=== PATIENT | male | born 1975 | race Caucasian/White ===

== ENCOUNTER 2018-03-27 17:09 | Emergency (ER) | payer OTHER ==
[2018-03-27 17:15] VITALS: BP 132/88; PULSE 113; TEMP 98.6; BMI 40.7
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
[2018-03-27 18:32] LABS: BASO % 0.9 % (0-2.0); EOS % 0.8 % (0-4.5); HEMATOCRIT 47.4 % (35.4-49); HEMOGLOBIN 16.1 GM/dL (11.7-16.9); LYMPH % 26.8 % (8-40); MCH 29.5 pg (25.7-33.7); MCHC 33.9 g/dl (32.0-35.9); MEAN CELL VOLUME 87.1 fl (80-96); MEAN PLT VOLUME 8.1 fl (7.5-11.1); MONO % 7.1 % (3.8-10.2); NEUT % 64.4 % (42.8-82.8); PLATELET COUNT 338 K/MM3 (134-434); RBC 5.45 M/mm3 (4.00-5.60); RDW 14.8 % (11.9-15.9); WHITE BLOOD COUNT 10.6 K/mm3 (4.0-10.0)
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
[2018-03-27 18:56] LABS: ALBUMIN 4.5 g/dl (3.4-5.0); ALK PHOS 82 U/L (45-117); ANION GAP 8 (8-16); BILIRUBIN,TOTAL 0.3 mg/dL (0.2-1.0); BLOOD UREA NITROGEN 11 mg/dL (7-18); CALCIUM 9.4 mg/dL (8.5-10.1); CHLORIDE 109 mmol/L (98-107); CO2 25 mmol/L (21-32); CREATININE 1.1 mg/dL (0.7-1.3); GLUCOSE,RANDOM 109 mg/dL (74-106); SGPT/ALT 65 U/L (12-78); SODIUM 142 mmol/L (136-145)
[2018-03-27 18:58] LABS: SGOT/AST 42 U/L (15-37)
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
[2018-03-27] MEDS ORDERED: KETOROLAC TROMETHAMINE 30 MG/1 ML VIAL IVPUSH ONE (19:49)
[2018-03-27] MEDS ORDERED: KETOROLAC TROMETHAMINE 30 MG/1 ML VIAL ONE (20:24)
[2018-03-27] MEDS ORDERED: METHOCARBAMOL 500 MG TABLET PO ONE (20:25)
[2018-03-27] MEDS ORDERED: BACLOFEN 10 MG TABLET (FP) PO ONE (21:26)
[2018-03-27] MEDS ORDERED: BACLOFEN 10 MG TABLET (FP) ONE (21:38)
== END 2018-03-27 22:19 | disposition home or self-care (01) ==
LOC: JER 17:09
PROC: 3E0333Z Introduction of Anti-inflammatory into Peripheral Vein, Percutaneous Approach (ICD-10-PCS; principal; 2018-03-27)
DX: S09.8XXA Other specified injuries of head, initial encounter (principal); M25.512 Pain in left shoulder; M54.5 Low back pain; V43.52XA Car driver injured in collision with other type car in traffic accident, initial encounter; W22.11XA Striking against or struck by driver side automobile airbag, initial encounter; Y92.414 Local residential or business street as the place of occurrence of the external cause; Y93.89 Activity, other specified; Y99.8 Other external cause status
CPT/HCPCS: 36415; 70450-TC; 72100-TC-FY; 72125-TC; 80053; 85025; 99282-25; J0475

== ENCOUNTER 2018-04-08 04:41 | Emergency (ER) | payer OTHER ==
[2018-04-08 05:37] VITALS: BP 136/96; PULSE 93; TEMP 98.2; BMI 40.7
[2018-04-08] MEDS ORDERED: TETRACAINE 0.5% HCL 0.6ML DROPPER.BOTTLE OS ONE (05:38)
[2018-04-08] MEDS ORDERED: DEXAMETHASONE 0.1% OPHTHALMIC SOLN 5 ML BOTTLE OS ONE (05:41)
[2018-04-08] MEDS ORDERED: CIPROFLOXACIN 0.3% EYE DROPS 5 ML BOTTLE OS ONE (05:41)
[2018-04-08] MEDS ORDERED: FLUORESCEIN NA 1 EA STRIP OS ONE (05:42)
[2018-04-08] MEDS ORDERED: CIPROFLOXACIN HCL 0.3% OPHTH 2.5ML BOTTLE ONE ×2 (05:50→05:52)
[2018-04-08] MEDS ORDERED: TETRACAINE 0.5% OPHTH SOLN 2 ML BOTTLE ONE (05:50)
[2018-04-08] MEDS ORDERED: FLUORESCEIN NA 1 EA STRIP ONE (05:52)
--- NOTE | 2018-04-08 06:43 | PDOC ---
History of Present Illness - General Chief Complaint: Eye Problem Stated Complaint: EYE PAIN Time Seen by Provider: 04/08/18 05:30 History Source: Patient Exam Limitations: No Limitations - History of Present Illness Initial Comments: 04/08/18 06:34 Patient is a 42 year old male with h/o orthopedic surgery to the knee, appendectomy, hernia repair c/o left eye irritation and pain since yesterday. States he woke up to the eye having a stinging across the middle of the eye. States he had a problem with the eye in the past was dx with iritis and was prescribed some drops and some ointment which she used and it felt better. The eye was feeling good day but this morning the pain woke him up from sleep so decided to come to the ED. Pain is 8/10, feels like he got a cut across the eye and was assoc/w mild photophobia, with no visual deficit. No injury to the eye. Patient used cycloplegic drops prior to emergency room visit PMHX: as above PSOCHX: (+) cig 1PPD, neg etoh, neg drugs ALL: ASA GENERAL/CONSTITUTIONAL: [No fever or chills. No weakness. No weight change.] HEAD, EYES, EARS, NOSE AND THROAT: [No change in vision, (+) eye pain left. No ear pain or discharge. No sore throat.] CARDIOVASCULAR: [No chest pain or shortness of breath.] RESPIRATORY: [No cough, wheezing, or hemoptysis.] GASTROINTESTINAL: [No nausea, vomiting, diarrhea or constipation. No rectal bleeding.] GENITOURINARY: [No dysuria, frequency, or change in urination.] MUSCULOSKELETAL: [No joint or muscle swelling or pain. No neck or back pain.] SKIN AND BREASTS: [No rash or easy bruising.] NEUROLOGIC: [No headache, vertigo, loss of consciousness, or loss of sensation.] PSYCHIATRIC: [No depression or anxiety.] ENDOCRINE: [No increased thirst. No abnormal weight change.] HEMATOLOGIC/LYMPHATIC: [No anemia, easy bleeding, or history of blood clots.] ALLERGIC/IMMUNOLOGIC: [No hives or skin allergy. No latex allergy.] GENERAL: [The patient is awake, alert, and fully oriented, in no acute distress. ] HEAD: [Normal with no signs of trauma.] EYES: [right pupil round and reactive to light, left round dialated 5mm (use cycloplegic gtts), extraocular movements intact, sclera anicteric, discharge from the left eye matted on the lids, (+) mildly erythematous conjunctiva, right conjunctiva clear. vessel intact, VA 20/20 left] ENT: [ Ears normal, nares patent, oropharynx clear without exudates. Moist mucous membranes.] NECK: [Normal range of motion, supple without lymphadenopathy, JVD, or masses.] LUNGS: [Breath sounds equal, clear to auscultation bilaterally. No wheezes, and no crackles.] HEART: [Regular rate and rhythm, normal S1 and S2 without murmur, rub.] ABDOMEN: [Soft, nontender, normoactive bowel sounds. No guarding, no rebound. No masses.] EXTREMITIES: [Normal range of motion, no edema. No clubbing or cyanosis. No cords, erythema, or tenderness.] NEUROLOGICAL: [Cranial nerves II through XII grossly intact. Normal speech, normal gait.] PSYCH: [Normal mood, normal affect.] SKIN: [Warm, Dry, normal turgor, no rashes or lesions noted.] Past History - Past Medical History Allergies/Adverse Reactions: Allergies Allergy/AdvReac Type Severity Reaction Status Date / Time aspirin Allergy Verified 04/08/18 05:37 Home Medications: Ambulatory Orders Ibuprofen 800 mg PO TID #20 tablet 03/27/18 Methocarbamol 1,000 mg PO TID #20 tablet 03/27/18 COPD: No DVT: No - Surgical History Abdominal Surgery: Yes (HERNIA) Appendectomy: Yes Orthopedic Surgery: Yes (KNEE/SHOULDER) - Immunization History Immunization Up to Date: Yes - Suicide/Smoking/Psychosocial Hx Smoking History: Never smoked Have you smoked in the past 12 months: No Number of Cigarettes Smoked Daily: 20 Information on smoking cessation initiated: No 'Breaking Loose' booklet given: 03/27/18 Hx Alcohol Use: No Drug/Substance Use Hx: No Substance Use Type: None Hx Substance Use Treatment: No *Physical Exam - Vital Signs Last Vital Signs Temp Pulse Resp BP Pulse Ox 98.2 F 93 H 18 136/96 97 04/08/18 05:00 04/08/18 05:00 04/08/18 05:00 04/08/18 05:00 04/08/18 05:00 ED Treatment Course - Medications Given in the ED: ED Medications Discontinued Medications Generic Name Dose Route Start Last Admin Trade Name Deja PRN Reason Stop Dose Admin Ciprofloxacin 1 drop 04/08/18 05:41 04/08/18 05:58 Ciloxan 0.3% Eye Drops -- OS 04/08/18 05:42 1 drop ONCE ONE Administration Dexamethasone Sodium Phosphate 1 drop 04/08/18 05:41 04/08/18 06:31 Dexamethasone 0.1% Eye Drops - OS 04/08/18 05:42 Not Given ONCE ONE Fluorescein Sodium 1 ea 04/08/18 05:42 04/08/18 05:58 Fluorets - OS 04/08/18 05:43 1 ea ONCE ONE Administration Tetracaine HCl 1 drop 04/08/18 05:38 04/08/18 05:58 Tetravisc 0.5% Eye Drops - OS 04/08/18 05:39 1 drop ONCE ONE Administration Medical Decision Making - Medical Decision Making 04/08/18 06:34 Patient is a 42 year old male with h/o orthopedic surgery to the knee, appendectomy, hernia repair c/o left eye irritation and pain since yesterday with conjunctiva redness and discharge, normal VA suggestive of conjunctivitis. ciloxan, steriod gtts, f/u optho. I discussed the physical exam findings, ancillary test results and final diagnoses with the patient. I answered all of the patient's questions. The patient was satisfied with the care received and felt comfortable with the discharge plan and treatment plan. The Patient agrees to follow up with the primary care physician within 24-72 hours. *DC/Admit/Observation/Transfer Diagnosis at time of Disposition: Conjunctivitis Qualifiers: Conjunctivitis type: other Laterality: left Qualified Code(s): H10.89 - Other conjunctivitis - Discharge Dispostion Disposition: HOME Condition at time of disposition: Stable - Referrals Referrals: Ellis Castro MD [Staff Physician] - - Patient Instructions Printed Discharge Instructions: DI for Conjunctivitis Additional Instructions: Your Discharge Instructions: You must call primary care physician within 24 hours to arrange follow-up. Return to the Emergency Department with any new, persistent or worsening symptoms, for fever, chills, SOB, dizziness or any other concerning changes that may occur. When given Ciloxan drops. He is to drops in the left eye every 2 hours x 24 hours, then every 4 hours for 5 days. If symptoms are not resolving must follow-up with the [facility] lead. - Post Discharge Activity
== END 2018-04-08 07:03 | disposition home or self-care (01) ==
LOC: JER 04:41
DX: H10.32 Unspecified acute conjunctivitis, left eye (principal)
CPT/HCPCS: 99281-25

== ENCOUNTER 2019-01-13 23:29 | Emergency (ER) | payer OTHER ==
[2019-01-13 23:33] VITALS: BP 119/71; PULSE 104; TEMP 97.9; BMI 42.3
--- NOTE | 2019-01-13 23:49 | PDOC ---
*Physical Exam - Vital Signs Last Vital Signs Temp Pulse Resp BP Pulse Ox 97.9 F 104 H 18 119/71 98 01/13/19 23:30 01/13/19 23:30 01/13/19 23:30 01/13/19 23:30 01/13/19 23:30 Medical Decision Making - Medical Decision Making 01/13/19 23:49 Patient seen by the advanced practice provider under my direct supervision. Ancillary testing reviewed as necessary. I agree with plan as outlined by the advanced practice provider. *DC/Admit/Observation/Transfer - Referrals Referrals: Ximena Javier [Primary Care Provider] - - Patient Instructions - Post Discharge Activity
--- NOTE | 2019-01-14 00:01 | PDOC ---
History of Present Illness - General Chief Complaint: Pain Stated Complaint: PAIN IN RIGHT SIDE Time Seen by Provider: 01/13/19 23:46 History Source: Patient Exam Limitations: No Limitations - History of Present Illness Initial Comments: 01/14/19 03:24 43 yo male pmh of GERD presents to the ED for RUQ pain. Pt states the pain started 2 months ago, has been intermittent, with radiation across the top of his abdomen described as sharp and stabbing. Pt reportedly saw GI (Doctors name unknown, through [facility]) given PPI with no imaging. Admits to worsening pain after meals otherwise, no exacerbating or relieving factors. Denies N/V/F/C, back pain, burning/pain or blood on urination, changes in bowel habits. Past History - Past Medical History Allergies/Adverse Reactions: Allergies Allergy/AdvReac Type Severity Reaction Status Date / Time aspirin Allergy Verified 01/13/19 23:33 Home Medications: Ambulatory Orders Ibuprofen 800 mg PO TID #20 tablet 03/27/18 Methocarbamol 1,000 mg PO TID #20 tablet 03/27/18 Ciprofloxacin 0.3% Eye Drops [Ciloxan 0.3% Eye Drops -] 1 drop OS Q4H #1 bottle 04/08/18 COPD: No DVT: No - Surgical History Abdominal Surgery: Yes (HERNIA) Appendectomy: Yes Orthopedic Surgery: Yes (KNEE/SHOULDER) - Immunization History Immunization Up to Date: Yes - Suicide/Smoking/Psychosocial Hx Smoking History: Never smoked Have you smoked in the past 12 months: No Number of Cigarettes Smoked Daily: 20 'Breaking Loose' booklet given: 03/27/18 Hx Alcohol Use: No Drug/Substance Use Hx: No Substance Use Type: None Hx Substance Use Treatment: No Review of Systems - Review of Systems Constitutional: No: Chills, Fever Respiratory: No: Shortness of Breath Cardiac (ROS): No: Chest Pain, Edema ABD/GI: Yes: Other (RUQ abdominal pain). No: Abdominal Distended, Constipated, Diarrhea, Nausea, Vomiting : No: Dysuria, Discharge Musculoskeletal: No: Back Pain Neurological: No: Headache, Numbness, Paresthesia *Physical Exam - Vital Signs Last Vital Signs Temp Pulse Resp BP Pulse Ox 97.9 F 104 H 18 119/71 98 01/13/19 23:30 01/13/19 23:30 01/13/19 23:30 01/13/19 23:30 01/13/19 23:30 - Physical Exam General Appearance: Yes: Nourished, Appropriately Dressed. No: Apparent Distress HEENT: positive: EOMI Neck: positive: Supple Respiratory/Chest: positive: Lungs Clear, Normal Breath Sounds. negative: Crackles, Rales, Rhonchi, Stridor, Wheezing Cardiovascular: positive: Regular Rhythm, S1, S2, Tachycardia. negative: Edema , JVD, Murmur Vascular Pulses: Dorsalis-Pedis (R): 4+, Doralis-Pedis (L): 4+ Gastrointestinal/Abdominal: positive: Normal Bowel Sounds, Flat, Soft, Tenderness (RUQ with deep palpation). negative: Protuberent, Distended, Guarding, Rebound Extremity: positive: Normal Capillary Refill, Normal Inspection Integumentary: positive: Normal Color, Dry, Warm Neurologic: positive: Fully Oriented, Alert, Normal Mood/Affect, Normal Response ED Treatment Course - LABORATORY CBC & Chemistry Diagram: 01/14/19 01:02 01/14/19 01:02 - RADIOLOGY Radiology Studies Ordered: Category Date Time Status ABDOMEN US -LIMITED [US] Stat Ultrasound 01/13/19 23:58 Ordered Medical Decision Making - Medical Decision Making 01/14/19 04:44 43 yo male pmh of GERD presents to the ED for RUQ pain. Pt states the pain started 2 months ago, has been intermittent, with radiation across the top of his abdomen described as sharp and stabbing. Pt reportedly saw GI (Doctors name unknown, through [facility]) given PPI with no imaging. Admits to worsening pain after meals otherwise, no exacerbating or relieving factors. Denies N/V/F/C, back pain, burning/pain or blood on urination, changes in bowel habits. vitals show elevated HR otherwise WNL, will repeat DDX INLT: cholecystitis, PUD, *DC/Admit/Observation/Transfer Diagnosis at time of Disposition: Right upper quadrant abdominal pain - Discharge Dispostion Disposition: HOME Condition at time of disposition: Stable Decision to Admit order: No - Referrals Referrals: Ximena Javier [Primary Care Provider] - Emerson Garner MD [Staff Physician] - - Patient Instructions Printed Discharge Instructions: DI for Abdominal Pain-Adult Additional Instructions: Please see your primary doctor within the next 48 hours. Make an appointment to see Dr. Garner in GI for further investigation into your prolonged abdominal pain. Take over the counter Motrin as instructed on the packaging as needed. Return to the ER for new or concerning symptoms including but not limited to: high fevers, severe abdominal pain, inability to eat or drink, blood in the stool. Thank you - Post Discharge Activity
[2019-01-14 01:18] LABS: EOS % 1.3 % (0-4.5); HEMOGLOBIN 15.6 GM/dL (11.7-16.9); LYMPH % 35.7 % (8-40); MCH 29.7 pg (25.7-33.7); MCHC 33.2 g/dl (32.0-35.9); MEAN CELL VOLUME 89.3 fl (80-96); MEAN PLT VOLUME 8.4 fl (7.5-11.1); MONO % 8.7 % (3.8-10.2); NEUT % 53.3 % (42.8-82.8); PLATELET COUNT 313 K/MM3 (134-434); RBC 5.26 M/mm3 (4.00-5.60); RDW 13.9 % (11.9-15.9); WHITE BLOOD COUNT 11.8 K/mm3 (4.0-10.0)
[2019-01-14 01:44] LABS: ALK PHOS 107 U/L (45-117); ANION GAP 7 MMOL/L (8-16); BILIRUBIN,TOTAL 0.3 mg/dL (0.2-1); BLOOD UREA NITROGEN 15 mg/dL (7-18); CALCIUM 9.4 mg/dL (8.5-10.1); CHLORIDE 107 mmol/L (98-107); CO2 25 mmol/L (21-32); CREATININE 1.1 mg/dL (0.55-1.3); GLUCOSE,RANDOM 129 mg/dL (74-106); LIPASE 171 U/L (73-393); SGOT/AST 46 U/L (15-37); SGPT/ALT 48 U/L (13-61); SODIUM 139 mmol/L (136-145); TOT PROT 7.7 g/dl (6.4-8.2)
[2019-01-14 01:45] LABS: POTASSIUM 4.8 mmol/L (3.5-5.1)
--- NOTE | 2019-01-14 01:54 | PDOC ---
Attending Attestation - Resident Resident Name: Noe Rico - ED Attending Attestation I have performed the following: I have examined & evaluated the patient, The case was reviewed & discussed with the resident, I agree w/resident's findings & plan - HPI HPI: 01/14/19 04:29 43-year-old male complaining of intermittent right upper quadrant pain over the last 2 months, worse today which prompted him to come in. He did eat prior to this episode. He describes as aching and nonradiating. It fluctuates in intensity. At times it is completely gone. There is no associated trauma fever vomiting or shortness of breath. - Physicial Exam PE: 01/14/19 04:30 Agree with resident's exam - Medical Decision Making 01/14/19 04:30 43-year-old male with intermittent right upper quadrant pain Ultrasound the right upper quadrant, CTA of the chest and CT abdomen and pelvis show no significant acute abnormality Peripheral subsegmental pulmonary emboli cannot entirely be ruled out though patient is in no acute distress, he has no dyspnea is not hypoxic and is currently playing on a iPod. Clinically significant pulmonary embolism unlikely. Plan for discharge home with continued outpatient primary care and GI follow-up.
[2019-01-14 04:44] LABS: URINE APPEARANCE CLEAR; URINE BILIRUBIN NEGATIVE (NEGATIVE); URINE COLOR YELLOW; URINE GLUCOSE (UA) NEGATIVE (NEGATIVE); URINE KETONE NEGATIVE (NEGATIVE)
[2019-01-14 04:45] LABS: EPI CELLS 3.2 /HPF (0-5/HPF); URINE BACTERIA 12.2 /hpf (NEGATIVE); URINE LEUK ESTERASE NEGATIVE (NEGATIVE); URINE NITRITE NEGATIVE (NEGATIVE); URINE PROTEIN NEGATIVE (NEGATIVE); URINE RBC 15.1 /hpf (0-4); URINE UROBILINOGEN 0.2 mg/dL (0.2-1.0); URINE WBC 11.1 /hpf (0-5)
[2019-01-14 04:46] LABS: URINE CASTS 0.51 /lpf (0-8)
--- NOTE | 2019-01-14 11:37 | EKG ---
Test Reason : Blood Pressure : / mmHG Vent. Rate : 082 BPM Atrial Rate : 082 BPM P-R Int : 142 ms QRS Dur : 086 ms QT Int : 350 ms P-R-T Axes : 005 049 022 degrees QTc Int : 408 ms NORMAL SINUS RHYTHM NORMAL ECG WHEN COMPARED WITH ECG OF 20-SEP-2016 15:40, NO SIGNIFICANT CHANGE WAS FOUND Confirmed by Alberto Cheung MD ([id number]) on 01/14/2019 11:37:02 AM Referred By: Confirmed By:Alberto Cheung MD
== END 2019-01-14 04:58 | disposition home or self-care (01) ==
LOC: JER 23:29
DX: R10.11 Right upper quadrant pain (principal); K21.9 Gastro-esophageal reflux disease without esophagitis
CPT/HCPCS: 36415; 71275-TC; 74177-TC; 76705-TC; 80053; 81003; 83690; 85025; 87086; 93005; 93010; 99283-25